=== PATIENT | male | born 1935 | race Caucasian/White ===

== ENCOUNTER → 2017-12-20 08:03 | Outpatient (CLI) | payer MEDICARE, OTHER, SELFPAY ==
[2017-12-20 09:29] LABS: BUN Creatinine Ratio 21.2 (6-22); Blood Urea Nitrogen 36 mg/dL (9-20); Calcium 9.2 mg/dL (8.4-10.2); Carbon Dioxide 25 mmol/L (22-32); Chloride 104 mmol/L (98-107); Estimated Glomerular Filt Rate 38.9 mL/min (>60); Glucose 99 mg/dL (80-110); HEMOLYSIS < 15 (0-50); Potassium 4.6 mmol/L (3.4-5.1); Sodium 141 mmol/L (137-145); Uric Acid 7.8 mg/dL (3.5-8.5)
[2017-12-20 09:30] LABS: C-Reactive Protein Quant < 0.5 mg/dL (<1.0)
[2017-12-20 09:33] LABS: Erythrocyte Sedimentation Rate 16 MM/HR (0-15)
== END ==
PROVIDERS: PCP Internal Medicine; Visit Provider Internal Medicine
DX: M10.9 Gout, unspecified (principal)
CPT/HCPCS: 36415; 80048; 84550; 85651; 86140

== ENCOUNTER 2018-03-30 13:20 | Emergency (ER) | payer MEDICARE, OTHER, SELFPAY ==
[2018-03-30 13:22] VITALS: BP 145/79; PULSE 67; RESP 14; TEMP 36.7; O2SAT 96; BMI 29.0
--- NOTE | 2018-03-30 13:25 | DI.RAD.S_ITS ---
PROCEDURE: XR CHEST 1V INDICATIONS: chest pain TECHNIQUE: One view of the chest was acquired. COMPARISON: [facility], , CHEST 1 VIEW, 07/07/2017, 12:11. FINDINGS: Surgical changes and devices: None. Lungs and pleura: No pleural effusions or pneumothorax. Lungs are clear. Mediastinum: Mediastinal contours appear normal. Heart size is normal. There is likely a large hiatal hernia. Bones and chest wall: No suspicious bony lesions. Overlying soft tissues appear unremarkable. IMPRESSION: No acute cardiopulmonary findings. Dictated by: Rema Flores M.D. on 03/30/2018 at 13:49 Approved by: Rema Flores M.D. on 03/30/2018 at 13:50
[2018-03-30 13:42] LABS: Add Manual Diff / Slide Review NO; Basophils Percent Auto 1.2 % (0-2); Eosinophils Percent Auto 1.4 % (2-4); Hematocrit 40.2 % (41-53); Hemoglobin 13.7 g/dL (13.5-17.5); Lymphocytes Percent Auto 16.2 % (25-40); Mean Corpuscular HGB Conc 34.2 % (30-36); Mean Corpuscular Volume 90.6 fL (80-100); Monocytes Percent Auto 6.3 % (3-14); Neutrophils Absolute Auto 4900 /uL (3000-5900); Neutrophils Percent Auto 74.9 % (50-75); Platelet Count 193 X10^3/uL (150-400); Red Blood Cell Count 4.43 X10^6/uL (4.5-5.9); Red Cell Distribution Width 13.1 % (11.6-14.8); White Blood Cell Count 6.6 X10^3/uL (4.5-11.0)
[2018-03-30 13:52] LABS: Prothrombin Time 11.1 SECONDS (10.1-12.7)
[2018-03-30 13:54] LABS: PTT Partial Thromboplastin Tim 30 SECONDS (26.4-36.2)
[2018-03-30 13:57] LABS: Alanine Aminotransferase 33 IU/L (21-72); Albumin 4.9 g/dL (3.5-5.0); Albumin Globulin Ratio 1.5 (1.0-2.8); Alkaline Phosphatase 110 U/L (38-126); Aspartate Aminotransferase 34 IU/L (17-59); BUN Creatinine Ratio 20.6 (6-22); Bilirubin Total 0.6 mg/dL (0.2-1.3); Blood Urea Nitrogen 33 mg/dL (9-20); Calcium 9.7 mg/dL (8.4-10.2); Carbon Dioxide 25 mmol/L (22-32); Chloride 102 mmol/L (98-107); Creatine Kinase 369 U/L (55-170); Estimated Glomerular Filt Rate 41.7 mL/min (>60); Globulin 3.2 g/dL (1.7-4.1); Glucose 145 mg/dL (80-110); HEMOLYSIS < 15 (0-50); Lipase 43 U/L (23-300); Sodium 142 mmol/L (137-145); Total Protein 8.1 g/dL (6.3-8.2)
[2018-03-30 14:00] VITALS: BP 146/85; PULSE 66; RESP 13; O2SAT 96
[2018-03-30 14:12] LABS: CKMB % Relative Index 1.5 % (1.5-5.0); Creatine Kinase MB 5.36 ng/mL (<2.37)
[2018-03-30 14:14] LABS: Troponin I < 0.012 ng/mL (0.01-0.034)
--- NOTE | 2018-03-30 15:33 | ED.GENADULT ---
HPI - General Adult General Chief complaint: Hypertension Stated complaint: elevated blood pressure, R/O VT Time Seen by Provider: 03/30/18 13:27 Source: patient Mode of arrival: ambulatory Limitations: no limitations History of Present Illness HPI narrative: Patient c/o feeling funny, and finding his BP to be elevated, with a SBP of 170. He denies CP or SOB. He is on his usual dose of lisinopril. He states his normal SBP is 120-130. Patient states he is feeling better now. Patient denies chest pain, shortness breath, nausea, vomiting, just abdominal pain, dysuria, back pain, headache, neurologic deficits, or fever. Related Data Home Medications Medication Instructions Recorded Confirmed multivitamin 1 tab PO DAILY #0 01/26/11 03/30/18 Machado Juice 1 dose PO PRN PRN 03/30/18 03/30/18 ibuprofen 400 mg PO PRN PRN 03/30/18 03/30/18 Previous Rx's Medication Instructions Recorded clopidogrel 75 mg PO QDAY #30 tab 06/18/17 simvastatin 20 mg PO HS #30 tab 06/18/17 alprazolam 0.25 mg tablet 0.25 mg PO TID PRN #90 tabs 10/27/17 lansoprazole 30 mg PO Q DAY #90 cap 02/23/18 lisinopril 5 mg tablet 5 mg PO BID #60 tab 03/31/18 Allergies Allergy/AdvReac Type Severity Reaction Status Date / Time No Known Drug Allergies Allergy Verified 03/30/18 13:25 Review of Systems Review of Systems All systems reviewed & are unremarkable except as noted in HPI and below Constitutional Denies chills, Denies fever(s), Denies lethargy and Denies weakness Eyes Denies change in vision, Denies eye discharge, Denies irritation and Denies loss of vision ENT Ears, Nose, Mouth, and Throat: Denies change in voice, Denies neck pain and Denies sore throat Cardiovascular Denies chest pain, Denies irregular heart rhythm, Denies lightheadedness, Denies palpitations, Denies dyspnea, Denies dyspnea on exertion and Denies orthopnea Respiratory Denies cough, Denies dyspnea, Denies dyspnea on exertion and Denies wheezing Gastrointestinal Gastrointestinal: Denies abdominal pain, Denies change in bowel habits, Denies diarrhea, Denies nausea and Denies vomiting Genitourinary Denies hematuria, Denies flank pain, Denies urinary incontinence and Denies urinary urgency Musculoskeletal Denies neck pain Integumentary/Breasts Denies pruritus, Denies erythema, Denies rash and Denies wounds Neurologic Denies confusion, Denies loss of vision and Denies weakness Psychiatric Denies anxiety, Denies confusion, Denies depression, Denies homicidal ideation and Denies suicidal ideation Endocrine Denies palpitations Hematologic/Lymphatic Denies easy bruising Allergic/Immunologic Denies wheezing [facility] Medical History Diverticular disease (Chronic) Cataract (Chronic ~2007) Glaucoma (Chronic ~2013) Carpal tunnel syndrome (Chronic ~2013) Fibromyalgia (Suspected ~2013) Hearing deficit (Chronic) Anxiety state, unspecified (Chronic 12/31/10) Gastroesophageal reflux disease without esophagitis (Chronic 12/31/10) Essential hypertension (Chronic 02/12/14) Status post insertion of drug-eluting stent into right coronary artery for coronary artery disease (Inactive 04/12/17) Coronary artery disease involving [place] coronary artery of [place] heart without angina pectoris (Chronic 04/12/17) Chicken pox (Resolved ~1941) Foot pain (Resolved ~2009) Gout (Resolved ~2009) Heartburn (Resolved ~2005) Measles (Resolved ~1943) Mumps (Resolved ~1963) Ruptured tympanic membrane (Resolved ~1972) Shoulder pain (Resolved ~2010) Tinnitus (Resolved ~1989) Surgical History History of vasectomy (Inactive) Status post tonsillectomy and adenoidectomy (Inactive ~1946) Family History Brother Age: 86 Family history of lung cancer Brother Cancer Sister Family history of Crohn's disease Father No problems noted. Grandfather No problems noted. Grandmother No problems noted. Mother No problems noted. Grandfather No problems noted. Grandmother No problems noted. 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.) Smoking Status: Former smoker Tobacco: How many years used: 3 Smokeless tobacco user: other (Cigarettes) quit status: quit date established (1958) second hand exposure: No alcohol intake: current (Occasionally) substance use type: does not use Exam Initial Vital Signs Initial Vital Signs: Vital Signs Temperature 98.1 F 03/30/18 13:22 Pulse Rate 67 03/30/18 13:22 Respiratory Rate 14 03/30/18 13:22 Blood Pressure 145/79 H 03/30/18 13:22 Pulse Oximetry 96 03/30/18 13:22 Const General: cooperative and well developed Nutritional Appearance: well nourished Orientation: alert, awake, oriented x3 and not confused HENMT Head: normocephalic and atraumatic Ears: external ears normal Nose: external nose normal and No nasal discharge Face and sinus: face symmetric Mouth: oral mucosae normal and moist mucous membranes Eyes General: appearance normal, both eyes and all related structures Eyelids: eyelids normal Conjunctivae: conjunctivae normal Sclera: sclerae normal Pupils: PERRL EOM: EOM intact bilaterally Neck Neck: normal visual inspection, trachea midline, No lymphadenopathy, No midline deformity and No JVD Lymphatic: No lymphedema Chest Chest: normal inspection of the chest Resp Effort & Inspection: normal respiratory effort, able to speak in complete sentences, no respiratory distress and no use of accessory muscles Auscultation: clear to auscultation bilaterally, no rales, no rhonchi and no wheezes Cardio Rate: regular rate Rhythm: regular rhythm Heart Sounds: no click, no gallops, no murmurs and no rubs Pulses: normal peripheral pulses GI Inspection: non-distended Palpation: soft, no hepatosplenomegaly, No guarding, No pulsatile mass and No tender Back/Spine/Pelvis Back: No CVA tenderness Cervical Spine: cervical ROM normal and No pain with cervical ROM Thoracic/Lumbar Spine: thoracic and lumbar spine normal to inspection Skin General: no rashes or lesions noted, No jaundice and No petechiae Neuro General: alert, oriented x3, gait normal and no focal motor deficits Speech: speech normal Extrem General: full ROM, no clubbing, cyanosis or edema, no pedal edema and no calf tenderness Psych Appearance: well kempt Mental Status: mental status grossly normal Attitude: cooperative Thought Content: normal and suicidality Judgment: judgment good Course Course Narrative: Patient was evaluated in the emergency department with labs EKG which were unremarkable. His blood pressure was just slightly higher than normal in the emergency department. The patient did not display any evidence of end-organ damage, and as such did not meet criteria for hypertensive emergency. I did advise him to continue taking his lisinopril usual, and if his blood pressure runs high persistently, to make an appointment with his primary care physician to discuss whether changes to his antihypertensive regimen are warranted. No urgency condition has been identified today. Orders Ordered: ED Orders 03/30/18 13:25 XR chest 1V Stat EKG-12 Lead Stat 03/30/18 13:34 Complete Blood Count AUTO DIFF Stat Comprehensive Metabolic Panel Stat Lipase Stat Partial Thromboplastin Time Stat Prothrombin Time INR Stat Troponin & CK Cardiac Panel Stat Vital Signs - 8 hr 03/30/18 13:22 03/30/18 14:00 Temperature 98.1 F Pulse Rate 67 66 Respiratory Rate 14 13 Blood Pressure 145/79 H Blood Pressure [Right Arm] 146/85 H Pulse Oximetry 96 96 Medical Decision Making Medical Records Medical records reviewed: Yes I reviewed the patient's medical records. Lab Data Lab results reviewed: Yes I reviewed the patient's lab results. Result diagrams: 03/30/18 13:34 03/30/18 13:34 Lab Results 03/30/18 03/30/18 03/30/18 Range/Units 13:34 13:34 13:34 WBC 6.6 (4.5-11.0) X10^3/uL RBC 4.43 L (4.5-5.9) X10^6/uL Hgb 13.7 (13.5-17.5) g/dL Hct 40.2 L (41-53) % MCV 90.6 (80-100) fL MCH 31.0 (26-34) PG MCHC 34.2 (30-36) % RDW 13.1 (11.6-14.8) % Plt Count 193 (150-400) X10^3/uL Neut % (Auto) 74.9 (50-75) % Lymph % (Auto) 16.2 L (25-40) % [place] % (Auto) 6.3 (3-14) % Eos % (Auto) 1.4 L (2-4) % Baso % (Auto) 1.2 (0-2) % Neut # (Auto) 4900 (3248-8903) /uL PT 11.1 (10.1-12.7) SECONDS INR 1.0 (0.9-1.3) APTT 30 (26.4-36.2) SECONDS Sodium 142 (137-145) mmol/L Potassium 5.0 (3.4-5.1) mmol/L Chloride 102 (98-107) mmol/L Carbon Dioxide 25 (22-32) mmol/L BUN 33 H (9-20) mg/dL Creatinine 1.60 H (0.66-1.25) mg/dL Estimated GFR 41.7 L (>60) mL/min BUN/Creatinine Ratio 20.6 (6-22) Glucose 145 H (80-110) mg/dL Calcium 9.7 (8.4-10.2) mg/dL Total Bilirubin 0.6 (0.2-1.3) mg/dL AST 34 (17-59) IU/L ALT 33 (21-72) IU/L Alkaline Phosphatase 110 (38-126) U/L Total Creatine Kinase 369 H (55-170) U/L CK-MB (CK-2) 5.36 H (<2.37) ng/mL CK-MB (CK-2) Rel Index 1.5 (1.5-5.0) % Troponin I < 0.012 (0.01-0.034) ng/mL Total Protein 8.1 (6.3-8.2) g/dL Albumin 4.9 (3.5-5.0) g/dL Globulin 3.2 (1.7-4.1) g/dL Albumin/Globulin Ratio 1.5 (1.0-2.8) Lipase 43 (23-300) U/L ECG Data Attestation: I personally reviewed and interpreted this ECG as follows: Interpretation: Twelve lead EKG performed on March 30, 2018 at 1:29 p.m.: Regular ventricular rhythm with a rate of 61 beats per minute UT interval 177 milliseconds QRS duration 113 milliseconds QTC interval 441 millisecond Normal axis Q-waves in lead 2 and AVF Occasional ectopy Interpretation: Sinus rhythm with occasional supraventricular premature complexes; probable inferior myocardial infarction, probably old; abnormal EKG is interpreted by ED MD. Discharge Plan Departure Patient Disposition: Home Clinical Impression: Hypertension Discharge Date/Time: 03/30/18 15:41 Interventions: ED Discharge Assessment Last Done: 03/30/18 15:40 Instructions: DI for High Blood Pressure Activity Restrictions/Additional Instructions: Your labs look good. Your EKG also looks good. Your blood pressure may be elevated in a temporary fashion, or it may be a long-term change, which requires your medications to be adjusted. As such, it is important that he follow up with your primary care physician to have your blood pressure recheck. You may also check it once a day around the same time, to get an idea of how high your running on a daily basis. Based on this, you can dock to your doctor about whether your medications need to be changed. Prescriptions: No Action multivitamin Tablet 1 tab PO DAILY Qty: 0 RF: 0 clopidogrel 75 MG tablet 75 mg PO QDAY Qty: 30 RF: 11 simvastatin 20 MG tablet 20 mg PO HS Qty: 30 RF: 10 alprazolam 0.25 mg tablet 0.25 mg PO TID PRN (Reason: anxiety) Qty: 90 RF: 3 lansoprazole 30 mg capsule,delayed release(DR/EC) 30 mg PO Q DAY Qty: 90 RF: 1 lisinopril 5 mg tablet 5 mg PO BID Qty: 60 RF: 0 ibuprofen 200 mg Tablet 400 mg PO PRN PRN (Reason: pain) RF: 0 Machado Juice 1 dose PO PRN PRN (Reason: gout) RF: 0
[2018-03-30 15:40] VITALS: BP 145/101; PULSE 56; RESP 20; O2SAT 99
== END 2018-03-30 15:41 | disposition home or self-care (01) ==
PROVIDERS: Emergency Provider Emergency Medicine; Family Provider Internal Medicine; PCP Internal Medicine
DX: I10 Essential (primary) hypertension (principal)
CPT/HCPCS: 36591; 71045; 80053; 82550; 82553; 83690; 84484; 85025; 85610; 85730; 93005; 99282; 99285

== ENCOUNTER → 2018-04-06 08:15 | Outpatient (CLI) | payer MEDICARE, OTHER, SELFPAY ==
[2018-04-06 09:33] LABS: Cholesterol 152 mg/dL (140-199); HDL Cholesterol 33 mg/dL (40-60); LDL Cholesterol Calculated 87 mg/dL (<100); Triglycerides 162 mg/dL (35-150)
== END ==
PROVIDERS: PCP Internal Medicine; Visit Provider Internal Medicine
DX: I25.10 Atherosclerotic heart disease of native coronary artery without angina pectoris (principal); I10 Essential (primary) hypertension
CPT/HCPCS: 36415; 80061

== ENCOUNTER → 2018-11-28 08:45 | Outpatient (CLI) | payer MEDICARE, OTHER, SELFPAY ==
[2018-11-28 10:08] LABS: Alanine Aminotransferase 22 IU/L (21-72); Albumin 4.3 g/dL (3.5-5.0); Albumin Globulin Ratio 1.5 (1.0-2.8); Alkaline Phosphatase 86 U/L (38-126); Aspartate Aminotransferase 28 IU/L (17-59); BUN Creatinine Ratio 18.7 (6-22); Bilirubin Total 0.6 mg/dL (0.2-1.3); Blood Urea Nitrogen 28 mg/dL (9-20); Calcium 9.3 mg/dL (8.4-10.2); Carbon Dioxide 27 mmol/L (22-32); Chloride 103 mmol/L (98-107); Estimated Glomerular Filt Rate 44.8 mL/min (>60); Globulin 2.8 g/dL (1.7-4.1); Glucose 102 mg/dL (80-110); Potassium 4.7 mmol/L (3.4-5.1); Sodium 139 mmol/L (137-145); Total Protein 7.1 g/dL (6.3-8.2); Triglycerides 196 mg/dL (35-150)
[2018-11-28 10:09] LABS: Cholesterol 153 mg/dL (140-199); HDL Cholesterol 32 mg/dL (40-60); HEMOLYSIS < 15 (0-50); LDL Cholesterol Calculated 82 mg/dL (<100)
== END ==
PROVIDERS: Family Provider Internal Medicine; PCP Internal Medicine; Visit Provider Internal Medicine
DX: I10 Essential (primary) hypertension (principal); I25.10 Atherosclerotic heart disease of native coronary artery without angina pectoris
CPT/HCPCS: 36415; 80053; 80061

== ENCOUNTER 2018-12-16 10:05 | Emergency (ER) | payer MEDICARE, OTHER, SELFPAY ==
[2018-12-16] VITALS (7 sets, daily range): BP systolic 115–136; BP diastolic 65–80; PULSE 53–73; RESP 12–17; TEMP 36.3; O2SAT 95–99
--- NOTE | 2018-12-16 10:12 | DI.RAD.S_ITS ---
PROCEDURE: XR CHEST 1V INDICATIONS: chest pain TECHNIQUE: One view of the chest was acquired. COMPARISON: [facility], CR, XR CHEST 1V, 03/30/2018, 13:37. FINDINGS: Surgical changes and devices: None. Lungs and pleura: Lungs are clear. No pleural effusions or pneumothorax. Mediastinum: Moderate hiatal hernia. Mediastinal contours otherwise appear normal. Heart size is normal. Bones and chest wall: No suspicious bony lesions. Overlying soft tissues appear unremarkable. IMPRESSION: 1. No acute process. 2. Moderate hiatal hernia. Dictated by: Alisha Vanessa M.D. on 12/16/2018 at 9:58 Approved by: Alisha Vanessa M.D. on 12/16/2018 at 9:58
--- NOTE | 2018-12-16 10:15 | ED_ITS ---
HPI - Chest Pain General Chief Complaint: Chest Pain Stated Complaint: chest pain Time Seen by Provider: 12/16/18 10:07 Source: patient Mode of arrival: ambulatory Limitations: no limitations History of Present Illness HPI narrative: Patient is an 83-year-old male who presents with pain. He says that he was working on his trailer hitch when he started having some epigastric central sternal pain. He has no shortness breath no jaw pain no arm pain. He has a history of coronary artery disease with a stent. He says they got it before he had an HI, at that time his symptoms were shortness of breath with exertion. He says this is completely different today. It seems to be more of an ache in the center of his chest which has now completely resolved. Related Data Home Medications Medication Instructions Recorded Confirmed multivitamin 1 tab PO DAILY #0 01/26/11 11/24/18 [place] Juice 1 dose PO PRN PRN 03/30/18 11/24/18 ibuprofen 200 mg tablet 200 mg PO BEDTIME PRN tab 11/24/18 11/24/18 clopidogrel 75 mg PO DAILY 12/16/18 12/16/18 lansoprazole 30 mg PO DAILY 12/16/18 12/16/18 latanoprost 1 drp EYE-BOTH BEDTIME 12/16/18 12/16/18 simvastatin 20 mg PO BEDTIME 12/16/18 12/16/18 Previous Rx's Medication Instructions Recorded lisinopril 5 mg tablet 5 mg PO BID #60 tab 09/09/18 alprazolam 0.25 mg tablet 0.25 mg PO TID PRN #90 tabs 11/09/18 Allergies Allergy/AdvReac Type Severity Reaction Status Date / Time No Known Drug Allergies Allergy Verified 12/16/18 10:14 Review of Systems Review of Systems GENERAL: Denies chills, fatigue, malaise, fever, sweats, travel HEENT: Denies sinus pain, ear pain, sore throat, difficulty swallowing, neck pain RESPIRATORY: Denies dyspnea, cough, wheezing, hemoptysis, sputum. CARDIOVASCULAR: See HPI GASTROINTESTINAL: Denies nausea, vomiting, abdominal pain, diarrhea, constipation, melena. : Denies dysuria, frequency, incontinence, hematuria, urinary retention, flank pain. MUSCULOSKELETAL: Denies weakness, joint pain, or bony pain SKIN: No rash, no erythema, no pruritus NEUROLOGIC: Denies weakness, dizziness, headache, numbness, change in speech, confusion PSYCHIATRIC: No concerning psychosocial issues. 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 HEENT: Head atraumatic,EOMI, pupils reactive, face symmetric CARDIOVASCULAR: Regular rate and rhythm without murmurs, rubs or gallops. Pain is not reproducible by palpation RESPIRATORY: Breath sounds equal bilaterally, no wheezes rales or rhonchi. ABDOMEN: Soft, nontender. Normoactive bowel sounds all 4 quadrants. No guarding or rebound. : No CVA tenderness EXTREMITIES: Normal range of motion, no clubbing or edema. Neurovascularly intact NEUROLOGICAL: Alert and oriented x4.Normal gait and speech. Cranial nerves II through XII grossly intact. SKIN: Warm, dry, no laceration, no petechiae, no rashes or lesions. Course Orders Ordered: Discontinued Medications Aspirin (Aspirin Chew) 324 mg PO NOW ONE Stop: 12/16/18 10:13 Last Admin: 12/16/18 10:21 Dose: 324 mg Consultations Consultation #1: dr. mosquera Time: 14:06 Vital Signs - 8 hr 12/16/18 10:08 12/16/18 10:38 12/16/18 10:52 Temperature 97.4 F L Pulse Rate 73 67 68 Respiratory Rate 17 13 14 Blood Pressure 134/70 Blood Pressure [Left Arm] 115/69 132/70 Pulse Oximetry 97 97 97 12/16/18 11:14 12/16/18 12:13 12/16/18 13:24 Temperature Pulse Rate 67 65 53 L Respiratory Rate 12 14 13 Blood Pressure Blood Pressure [Left Arm] 125/65 125/73 136/67 Pulse Oximetry 97 99 98 MDM - Chest Pain Lab Data Attestation: I reviewed the patient's lab results. Result diagrams: 12/16/18 10:15 12/16/18 10:15 Lab Results 12/16/18 12/16/18 12/16/18 Range/Units 10:15 10:15 10:15 WBC 6.9 (4.5-11.0) X10^3/uL RBC 4.20 L (4.5-5.9) X10^6/uL Hgb 13.0 L (13.5-17.5) g/dL Hct 38.5 L (41-53) % MCV 91.8 (80-100) fL MCH 31.1 (26-34) PG MCHC 33.9 (30-36) % RDW 13.1 (11.6-14.8) % Plt Count 190 (150-400) X10^3/uL Neut % (Auto) 73.5 (50-75) % Lymph % (Auto) 16.1 L (25-40) % Hand % (Auto) 7.1 (3-14) % Eos % (Auto) 1.8 L (2-4) % Baso % (Auto) 1.5 (0-2) % Neut # (Auto) 5100 (6687-2559) /uL Lymph # (Auto) 1100 (6916-2165) /uL Hand # (Auto) 500 (0-900) /uL Eos # (Auto) 100 (0-450) /uL Baso # (Auto) 100 (0-100) /uL PT 11.9 (10.1-12.7) SECONDS INR 1.0 (0.9-1.3) APTT 31 (26.4-36.2) SECONDS Sodium 141 (137-145) mmol/L Potassium 4.7 (3.4-5.1) mmol/L Chloride 107 (98-107) mmol/L Carbon Dioxide 23 (22-32) mmol/L BUN 31 H (9-20) mg/dL Creatinine 1.50 H (0.66-1.25) mg/dL Estimated GFR 44.8 L (>60) mL/min BUN/Creatinine Ratio 20.7 (6-22) Glucose 125 H (80-110) mg/dL Calcium 9.6 (8.4-10.2) mg/dL Total Bilirubin 0.6 (0.2-1.3) mg/dL AST 34 (17-59) IU/L ALT 26 (21-72) IU/L Alkaline Phosphatase 90 (38-126) U/L Total Creatine Kinase 231 H (55-170) U/L CK-MB (CK-2) 5.05 H (<2.37) ng/mL CK-MB (CK-2) Rel Index 2.2 (1.5-5.0) % Troponin I < 0.012 (0.01-0.034) ng/mL B-Natriuretic Peptide < 100 (<100) Total Protein 7.7 (6.3-8.2) g/dL Albumin 4.6 (3.5-5.0) g/dL Globulin 3.1 (1.7-4.1) g/dL Albumin/Globulin Ratio 1.5 (1.0-2.8) Lipase 53 (23-300) U/L / Range/Units 13:13 WBC (4.5-11.0) X10^3/uL RBC (4.5-5.9) X10^6/uL Hgb (13.5-17.5) g/dL Hct (41-53) % MCV (80-100) fL MCH (26-34) PG MCHC (30-36) % RDW (11.6-14.8) % Plt Count (150-400) X10^3/uL Neut % (Auto) (50-75) % Lymph % (Auto) (25-40) % Hand % (Auto) (3-14) % Eos % (Auto) (2-4) % Baso % (Auto) (0-2) % Neut # (Auto) (6982-8310) /uL Lymph # (Auto) (4863-5352) /uL Hand # (Auto) (0-900) /uL Eos # (Auto) (0-450) /uL Baso # (Auto) (0-100) /uL PT (10.1-12.7) SECONDS INR (0.9-1.3) APTT (26.4-36.2) SECONDS Sodium (137-145) mmol/L Potassium (3.4-5.1) mmol/L Chloride (98-107) mmol/L Carbon Dioxide (22-32) mmol/L BUN (9-20) mg/dL Creatinine (0.66-1.25) mg/dL Estimated GFR (>60) mL/min BUN/Creatinine Ratio (6-22) Glucose (80-110) mg/dL Calcium (8.4-10.2) mg/dL Total Bilirubin (0.2-1.3) mg/dL AST (17-59) IU/L ALT (21-72) IU/L Alkaline Phosphatase (38-126) U/L Total Creatine Kinase (55-170) U/L CK-MB (CK-2) (<2.37) ng/mL CK-MB (CK-2) Rel Index (1.5-5.0) % Troponin I < 0.012 (0.01-0.034) ng/mL B-Natriuretic Peptide (<100) Total Protein (6.3-8.2) g/dL Albumin (3.5-5.0) g/dL Globulin (1.7-4.1) g/dL Albumin/Globulin Ratio (1.0-2.8) Lipase (23-300) U/L Imaging Data Chest x-ray: Radiologist's impression: PROCEDURE: XR CHEST 1V INDICATIONS: chest pain TECHNIQUE: One view of the chest was acquired. COMPARISON: [facility], CR, XR CHEST 1V, 03/30/2018, 13:37. FINDINGS: Surgical changes and devices: None. Lungs and pleura: Lungs are clear. No pleural effusions or pneumothorax. Mediastinum: Moderate hiatal hernia. Mediastinal contours otherwise appear normal. Heart size is normal. Bones and chest wall: No suspicious bony lesions. Overlying soft tissues appear unremarkable. IMPRESSION: 1. No acute process. 2. Moderate hiatal hernia. Dictated by: Alisha Vanessa M.D. on 12/16/2018 at 9:58 ECG Data Attestation: I personally reviewed and interpreted this ECG as follows: Prior ECG tracings: available for review Interpretation: EKG 1. Sinus rhythm rate 74 are Q-waves noted inferior leads no ST elevations no T-wave inversions. Q-waves remained unchanged since 2018 EKG 2. Sinus rhythm rate 57 no changes from prior MDM Narrative Medical decision making narrative: I discussed case with Dr. Mosquera, patient's PCP. Patient remains chest pain-free as 2-troponins. At this time [facility] unable to get stress test over the weekend. Dr. Mosquera will arrange for this to happen next week. I have discussed warning signs with patient and when to return to the emergency department he understands that he needs further workup. Discharge Plan Departure Patient Disposition: Home Clinical Impression: Atypical chest pain Discharge Date/Time: 12/16/18 14:23 Interventions: ED Discharge Assessment Last Done: 12/16/18 14:21 Instructions: DI for Atypical Chest Pain Activity Restrictions/Additional Instructions: *You have been diagnosed with atypical chest pain *What to do: You need a stress test, I have called and spoken to Dr. Mosquera who will schedule you for stress test next week. *Continue to take medications as directed *Follow up with your primary care provider in 2-3 days *Return to ER if you should have any worsening chest pain, shortness of breath o r any new, worsening or concerning symptoms Prescriptions: No Action multivitamin Tablet 1 tab PO DAILY Qty: 0 RF: 0 lisinopril 5 mg tablet 5 mg PO BID Qty: 60 RF: 0 alprazolam 0.25 mg tablet 0.25 mg PO TID PRN (Reason: anxiety) Qty: 90 RF: 3 [place] Juice 1 dose PO PRN PRN (Reason: gout) RF: 0 ibuprofen 200 mg tablet 200 mg PO BEDTIME PRN (Reason: pain) RF: 0 latanoprost 0.005 % drops 1 drp EYE-BOTH BEDTIME RF: 0 clopidogrel 75 mg tablet 75 mg PO DAILY RF: 0 simvastatin 20 mg tablet 20 mg PO BEDTIME RF: 0 lansoprazole 30 mg capsule,delayed release(DR/EC) 30 mg PO DAILY RF: 0 Referrals: Silvestre Mosquera MD [Primary Care Provider] -
[2018-12-16] MEDS: ASPIRIN 81 MG TAB 324 MG PO (10:21)
[2018-12-16 10:23] LABS: Add Manual Diff / Slide Review NO; Basophils Absolute Auto 100 /uL (0-100); Basophils Percent Auto 1.5 % (0-2); Eosinophils Absolute Auto 100 /uL (0-450); Eosinophils Percent Auto 1.8 % (2-4); Hematocrit 38.5 % (41-53); Lymphocytes Absolute Auto 1100 /uL (1100-4500); Lymphocytes Percent Auto 16.1 % (25-40); Mean Corpuscular HGB Conc 33.9 % (30-36); Mean Corpuscular Hemoglobin 31.1 PG (26-34); Mean Corpuscular Volume 91.8 fL (80-100); Monocytes Absolute Auto 500 /uL (0-900); Monocytes Percent Auto 7.1 % (3-14); Neutrophils Absolute Auto 5100 /uL (1500-7000); Neutrophils Percent Auto 73.5 % (50-75); Platelet Count 190 X10^3/uL (150-400); Red Cell Distribution Width 13.1 % (11.6-14.8); White Blood Cell Count 6.9 X10^3/uL (4.5-11.0)
[2018-12-16 10:29] LABS: Prothrombin Time 11.9 SECONDS (10.1-12.7)
[2018-12-16 10:32] LABS: PTT Partial Thromboplastin Tim 31 SECONDS (26.4-36.2)
[2018-12-16 10:35] LABS: Alanine Aminotransferase 26 IU/L (21-72); Albumin 4.6 g/dL (3.5-5.0); Albumin Globulin Ratio 1.5 (1.0-2.8); Alkaline Phosphatase 90 U/L (38-126); Aspartate Aminotransferase 34 IU/L (17-59); BUN Creatinine Ratio 20.7 (6-22); Bilirubin Total 0.6 mg/dL (0.2-1.3); Blood Urea Nitrogen 31 mg/dL (9-20); Calcium 9.6 mg/dL (8.4-10.2); Carbon Dioxide 23 mmol/L (22-32); Chloride 107 mmol/L (98-107); Creatine Kinase 231 U/L (55-170); Estimated Glomerular Filt Rate 44.8 mL/min (>60); Globulin 3.1 g/dL (1.7-4.1); Glucose 125 mg/dL (80-110); HEMOLYSIS 20 (0-50); Lipase 53 U/L (23-300); Potassium 4.7 mmol/L (3.4-5.1); Sodium 141 mmol/L (137-145); Total Protein 7.7 g/dL (6.3-8.2)
[2018-12-16 10:39] LABS: B Type Natriuretic Peptide < 100 (<100)
[2018-12-16 10:47] LABS: Troponin I < 0.012 ng/mL (0.01-0.034)
[2018-12-16 10:51] LABS: CKMB % Relative Index 2.2 % (1.5-5.0); Creatine Kinase MB 5.05 ng/mL (<2.37)
[2018-12-16 13:48] LABS: Troponin I < 0.012 ng/mL (0.01-0.034)
== END 2018-12-16 14:23 | disposition home or self-care (01) ==
PROVIDERS: Emergency Provider Emergency Medicine; Family Provider Internal Medicine; PCP Internal Medicine
DX: R07.89 Other chest pain (principal)
CPT/HCPCS: 36415; 36591; 71045; 80053; 82550; 82553; 83690; 83880; 84484; 85025; 85610; 85730; 93005; 99283; 99284

== ENCOUNTER → 2019-01-05 11:12 | Outpatient (CLI) | payer MEDICARE, OTHER, SELFPAY ==
--- NOTE | 2019-01-05 12:35 | PM.TREADMILL ---
Cardiac Stress Test Report Referral & Results Date Patient Seen: 01/05/19 Requesting provider: Silvestre Mosquera Indication: Atypical chest pain in patient with known coronary disease Rest ECG: Unremarkable Procedure Note: Today following both written and verbal informed consent the patient was exercised according to a standard Rafi protocol patient went for a total of 5 minutes 57 seconds achieving a maximum heart rate of 120 maximum systolic blood pressure of 160. This is approximately 7.0 METS. Exercise was terminated at this point because of inability the patient continuing targets were met. Patient was also given Cardiolite through a previously started Hep-Lock IV by the diagnostic imaging staff approximately 1 minute prior to the cessation of exercise. With exercise patient did develop T-wave inversion in leads V4 through V6 without symptoms. These did return to baseline just prior to the discontinuation of monitoring There are no other ST-T segment changes Occasional PAC Functional aerobic impairment rated about 0 on the active scale Impression: Nonspecific T-wave inversions as above. Average exercise capacity Please see perfusion imaging for further details regarding ischemia or lack there of Please note: Actual ECG tracings can be found in the PACS system.
--- NOTE | 2019-01-07 07:55 | DI.NM.S_ITS ---
DATE OF SERVICE: 01/05/2019 PROCEDURE PERFORMED: Exercise treadmill stress and rest myocardial perfusion imaging with gating to assess ejection fraction and regional wall motion. ORDERING PROVIDER: Silvestre Mosquera MD INDICATIONS: The patient is an 83-year-old male recently evaluated in the emergency department with chest tightness and dyspnea. EXERCISE TREADMILL TESTING: The patient was able to exercise for a total of 5 minutes 57 seconds on a standard Rafi protocol, suggesting average exercise capacity with an ROLLY of 0%. He had a normal heart rate and blood pressure response to exercise, achieving a maximum heart rate of 120 bpm (87% of his predicted maximum). He had no chest discomfort. His resting ECG shows sinus rhythm with frequent PACs but normal ST segments. With exercise, there is considerable motion artifact, but the 1-minute recovery ECGs suggest [address] depression in the inferolateral leads. There are no obvious concerning arrhythmias. At 4 minutes and 30 seconds of exercise, at a heart rate of 116 bpm, 27.0 mCi of technetium-99 Myoview was injected and the patient was imaged 20 minutes later using a gated SPECT acquisition protocol. The patient returned the following day and was reinjected with an additional 25.4 mCi of technetium-99 Myoview and was imaged 30 minutes later, again using a gated SPECT acquisition protocol. FINDINGS: 1. Raw Data: There is fair myocardial tracer uptake although there is considerable motion on the post-stress and resting images that require motion correction which can introduce artifact. The lung/heart ratio is normal at 0.33. While the TID ratio is measured at 1.33, which would be mildly elevated, this is not evident visually and is likely artifactual. 2. Quantitative Gated SPECT: Post-stress ejection fraction is estimated at 70% without any focal wall motion abnormality. Resting ejection fraction is estimated at 71% with an end-diastolic volume of 91 mL. 3. Myocardial Perfusion Imaging: Post-stress supine images show a somewhat heterogenous pattern of tracer uptake with a mild defect in the base of the inferior wall, which resolves on prone imaging, which shows a much more uniform, homogenous pattern of tracer activity, suggesting the absence of any perfusion defects. The resting images show a similar perfusion pattern to that of the post-stress supine images. CONCLUSIONS: 1. Normal myocardial perfusion study. 2. No evidence for myocardial ischemia or previous myocardial infarction. 3. Normal left ventricular systolic function without any focal wall motion abnormality. 4. Average exercise capacity without angina although with some mild, nonspecific ECG abnormalities which are likely a false positive. He had frequent PACs but no complex arrhythmia. Chandu Paz - RENNY/[place]/ts doc#: [id number]/job#: [id number] dd: 01/06/2019 15:59:00 dt: 01/07/2019 07:38:00 DICTATING MD/COPIES TO: Raymundo Oliva MD; Silvestre Mosquera MD COPIES MNE: THAO CASTILLO
== END ==
PROVIDERS: PCP Internal Medicine; Visit Provider Internal Medicine
DX: R07.89 Other chest pain (principal); R06.00 Dyspnea, unspecified; I25.10 Atherosclerotic heart disease of native coronary artery without angina pectoris
CPT/HCPCS: 78452; 93016; 93017; 93018; A9502

== ENCOUNTER → 2019-11-29 08:00 | Outpatient (CLI) | payer MEDICARE, OTHER, SELFPAY ==
[2019-11-29 10:13] LABS: Alanine Aminotransferase 27 IU/L (<50); Albumin 4.7 g/dL (3.5-5.0); Albumin Globulin Ratio 1.6 (1.0-2.8); Alkaline Phosphatase 90 U/L (38-126); Aspartate Aminotransferase 33 IU/L (17-59); BUN Creatinine Ratio 19.9 (6-22); Bilirubin Total 0.6 mg/dL (0.2-1.3); Blood Urea Nitrogen 30 mg/dL (9-20); Calcium 9.9 mg/dL (8.4-10.2); Carbon Dioxide 25 mmol/L (22-32); Chloride 104 mmol/L (98-107); Cholesterol 170 mg/dL (140-199); Estimated Glomerular Filt Rate 44.4 mL/min (>60); Globulin 2.9 g/dL (1.7-4.1); Glucose 101 mg/dL (80-110); HDL Cholesterol 33 mg/dL (40-60); HEMOLYSIS < 15 (0-50); LDL Cholesterol Calculated 99 mg/dL (<100); Sodium 140 mmol/L (137-145); Total Protein 7.6 g/dL (6.3-8.2); Triglycerides 191 mg/dL (35-150)
== END ==
PROVIDERS: PCP Internal Medicine; Referring Provider Internal Medicine; Visit Provider Internal Medicine
DX: Z13.220 Encounter for screening for lipoid disorders (principal); I25.10 Atherosclerotic heart disease of native coronary artery without angina pectoris; I10 Essential (primary) hypertension
CPT/HCPCS: 36415; 80053; 80061

== ENCOUNTER → 2020-06-04 11:51 | Outpatient (CLI) | payer MEDICARE, OTHER, SELFPAY ==
[2020-06-04 12:59] LABS: Add Manual Diff / Slide Review NO; Basophils Absolute Auto 100 /uL (0-100); Basophils Percent Auto 0.8 % (0-2); Eosinophils Absolute Auto 100 /uL (0-450); Eosinophils Percent Auto 1.1 % (2-4); Hematocrit 36.8 % (41-53); Hemoglobin 12.4 g/dL (13.5-17.5); Lymphocytes Absolute Auto 1000 /uL (1100-4500); Lymphocytes Percent Auto 12.8 % (25-40); Mean Corpuscular HGB Conc 33.8 % (30-36); Mean Corpuscular Hemoglobin 30.4 PG (26-34); Monocytes Absolute Auto 500 /uL (0-900); Monocytes Percent Auto 6.4 % (3-14); Neutrophils Absolute Auto 6000 /uL (1500-7000); Neutrophils Percent Auto 78.9 % (50-75); Platelet Count 180 X10^3/uL (150-400); Red Blood Cell Count 4.08 X10^6/uL (4.5-5.9); White Blood Cell Count 7.6 X10^3/uL (4.5-11.0)
[2020-06-04 13:11] LABS: Erythrocyte Sedimentation Rate 14 MM/HR (0-15)
[2020-06-04 13:52] LABS: Alanine Aminotransferase 22 IU/L (<50); Albumin 4.4 g/dL (3.5-5.0); Albumin Globulin Ratio 1.6 (1.0-2.8); Alkaline Phosphatase 99 U/L (38-126); Aspartate Aminotransferase 28 IU/L (17-59); BUN Creatinine Ratio 17.8 (6-22); Bilirubin Total 0.6 mg/dL (0.2-1.3); Blood Urea Nitrogen 28 mg/dL (9-20); C-Reactive Protein Quant 0.9 mg/dL (<1.0); Calcium 9.5 mg/dL (8.4-10.2); Carbon Dioxide 24 mmol/L (22-32); Chloride 104 mmol/L (98-107); Estimated Glomerular Filt Rate 42.3 mL/min (>60); Globulin 2.8 g/dL (1.7-4.1); Glucose 101 mg/dL (80-110); HEMOLYSIS < 15 (0-50); Potassium 5.1 mmol/L (3.4-5.1); Sodium 135 mmol/L (137-145); Total Protein 7.2 g/dL (6.3-8.2)
[2020-06-04 13:58] LABS: TSH w/ Reflex to FT4 2.38 uIU/mL (0.47-4.68)
== END ==
PROVIDERS: PCP Internal Medicine; Referring Provider Internal Medicine; Visit Provider Internal Medicine
DX: I10 Essential (primary) hypertension (principal); N18.30 Chronic kidney disease, stage 3 unspecified; Z95.5 Presence of coronary angioplasty implant and graft
CPT/HCPCS: 36415; 80053; 84443; 85025; 85651; 86140

== ENCOUNTER 2020-07-24 13:37 | Emergency (ER) | payer MEDICARE, OTHER, SELFPAY ==
[2020-07-24] VITALS (7 sets, daily range): BP systolic 124–168; BP diastolic 65–84; PULSE 71–79; RESP 16; TEMP 35.9; O2SAT 95–97; BMI 27.8
--- NOTE | 2020-07-24 14:06 | DI.CT.S_ITS ---
PROCEDURE: CT HEAD/BRAIN WO CON INDICATIONS: Fall on thinners TECHNIQUE: Noncontrast 4.5 mm thick angled axial sections acquired from the foramen magnum to the vertex, with coronal and sagittal reformats. For radiation dose reduction, the following was used: automated exposure control, adjustment of mA and/or kV according to patient size. COMPARISON: [facility], MR, STROKE PROTOCOL, 04/02/2016, 13:31. [facility], CT, HEAD WITHOUT CONTRAST, 04/01/2016, 18:58. [facility], CT, HEAD WITHOUT CONTRAST, 07/07/2017, 12:26. FINDINGS: Image quality: Excellent. CSF spaces: Basal cisterns are patent. No extra-axial fluid collections. The ventricles are symmetric in size and shape. Brain: No intracranial bleeds or masses. There is cerebral volume loss for age, with resultant ventricular and sulcal prominence. There are periventricular and deep white matter chronic small vessel ischemic changes. There is intracranial internal carotid artery atherosclerosis. Skull and face: Soft tissue hematoma can be seen posteriorly and superiorly, to the right of midline. No associated calvarial fracture can be seen. Sinuses: Visualized sinuses and mastoids are clear. IMPRESSION: No acute intracranial hemorrhage is seen. No acute intracranial process is seen. Right posterior superior scalp hematoma, without acute underlying fracture present. Dictated by: Shadi Allen M.D. on 07/24/2020 at 13:09 Approved by: Shadi Allen M.D. on 07/24/2020 at 13:12
--- NOTE | 2020-07-24 14:25 | ED_ITS ---
HPI - Head Injury <Valeri Gonzalez PA-C - Last Filed: 07/24/20 17:59> General Chief complaint: Head Injury Stated complaint: fell and hit back of head today Time Seen by Provider: 07/24/20 14:24 Source: patient Mode of arrival: Ambulatory History of Present Illness HPI Narrative: This is a well-appearing 85-year-old on clopidogrel, history of hypertension, stage III renal failure who presents complaining of a fall hitting the back of his head today shortly before arrival to the emergency department. He states he was helping 3 other people move of 450 lb hot tub into the back of a truck he lost his balance in the process and fell backwards hitting the back right top part of his head directly on asphalt. He did not lose consciousness, he denies headache, vision changes, coordination difficulty, speech changes, neck pain, back pain, ongoing bleeding or any other symptoms. MD Complaint: head injury Onset (ago): hour(s) (1.5) Mechanism of Injury: fall Place: home Loss of Consciousness: no Location of injury: parietal (posterior superior parietal) and occipital Severity: mild Severity scale (1-10): 2 Quality: aching Radiation: none Other Injuries: none Context: other anticoagulant use (Plavix) Associated symptoms: denies other symptoms Related Data Home Medications Medication Instructions Recorded Confirmed ibuprofen 200 mg tablet 200 mg PO BEDTIME PRN tab 11/24/18 06/04/20 timolol maleate 0.5 % eye drops 1 drop EYE-BOTH BID ml 04/28/19 06/04/20 multivitamin 1 tab PO DAILY 06/04/20 06/04/20 Previous Rx's Medication Instructions Recorded lisinopril 5 mg tablet 5 mg PO BID #180 tab 09/11/19 lansoprazole 30 mg capsule,delayed 30 mg PO DAILY #90 cap 03/05/20 release alprazolam 0.25 mg tablet 0.25 mg PO BEDTIME #90 tab 05/09/20 clopidogrel 75 mg tablet 75 mg PO DAILY #90 tab 05/27/20 sertraline 25 mg tablet 25 mg PO DAILY #90 tab 06/05/20 simvastatin 20 mg tablet 20 mg PO BEDTIME #90 tab 07/01/20 Allergies Allergy/AdvReac Type Severity Reaction Status Date / Time No Known Drug Allergies Allergy Verified 07/24/20 13:51 Review of Systems <Valeri Gonzalez PA-C - Last Filed: 07/24/20 17:59> Review of Systems Narrative: GENERAL: Denies chills, fatigue, malaise, fever, sweats. HEENT: Positive for goose egg on the top back of his head with a small amount of bleeding right after it happened. Denies sinus pain, ear pain, sore throat, difficulty swallowing, dizziness. RESPIRATORY: Denies dyspnea, cough, wheezing, hemoptysis, sputum. CARDIOVASCULAR: Denies chest pain, palpitations, orthopnea, edema, GASTROINTESTINAL: Denies nausea, vomiting, abdominal pain, diarrhea, constipation, melena. : Denies dysuria, frequency, incontinence, hematuria, urinary retention. MUSCULOSKELETAL: denies weakness, joint pain, or bony pain SKIN: Denies rash, skin lesions, or other NEUROLOGIC: Denies weakness, headache, numbness, change in speech, confusion, seizures, incoordination. PSYCHIATRIC: No concerning psychosocial issues. 12 point review of systems is negative except for those stated above ROS Unobtainable: All systems reviewed & are unremarkable except as noted in HPI and below Patient History <Valeri Gonzalez PA-C - Last Filed: 07/24/20 17:59> Medical History Anxiety state, unspecified (12/31/10) BPH w urinary obs/LUTS Carpal tunnel syndrome (~2013) Cataract (~2007) Chicken pox (~1941) Chronic renal failure, stage 3 (moderate) Coronary artery disease involving [place] coronary artery of [place] heart without angina pectoris (04/12/17) Diverticular disease Essential hypertension (02/12/14) Fibromyalgia (~2013) Foot pain (~2009) Gastroesophageal reflux disease without esophagitis (12/31/10) Glaucoma (~2013) Gout (~2009) Hearing deficit Heartburn (~2005) Measles (~1943) Mumps (~1963) Ruptured tympanic membrane (~1972) Shoulder pain (~2010) Status post insertion of drug-eluting stent into right coronary artery for coronary artery disease (04/12/17) Tinnitus (~1989) Surgical History History of vasectomy Status post tonsillectomy and adenoidectomy (~1947) Family History Brother Age: 88 Family history of lung cancer Brother Cancer Sister Family history of Crohn's disease Father No problems noted. Grandfather No problems noted. Grandmother No problems noted. Mother No problems noted. Grandfather No problems noted. Grandmother No problems noted. Social History marital status: number of children: 2 household members: spouse lives independently: Yes caregiver/support person: No housing: house pets and animals: Yes education level: master's degree occupational status: other Previous occupational history: [employer]: [employer] leisure activities: other Smoking Status: Former smoker Tobacco: How many years used: 3 Smokeless tobacco user: other quit status: quit date established second hand exposure: No alcohol intake: current substance use type: does not use Smoking Status: Former smoker alcohol intake frequency: a few times a month Substance Use Type: does not use Exam <Valeri Gonzalez PA-C - Last Filed: 07/24/20 17:59> Narrative Exam Narrative: GENERAL: 85 year old ambulatory without assistance patient appears younger than stated age. Well-nourished, well-developed patient, in mild distress. HEAD: On the posterior parietal on the right the patient has a ?goose egg? approximately 4 cm x 4 cm by 1 cm depth there is superficial broken skin consistent with an abrasion and mild skin tear there is a slight amount of blood present but no active bleeding. There is tenderness over the immediate area there is no bony crepitus or surrounding tenderness. Otherwise Atraumatic. Normocephalic. EYES: Pupils equal round and reactive. Extraocular motions intact. No scleral icterus. No injection or drainage. ENT: Nose without bleeding, purulent drainage. Throat without erythema, tonsill ar hypertrophy or exudate. Airway patent. NECK: Trachea midline. Non tender, normal active range of motion without pain, no spinous process tenderness. CARDIOVASCULAR: Regular rate and rhythm without murmurs, gallops, or rubs. RESPIRATORY: Clear to auscultation. Breath sounds equal bilaterally. No wheezes, rales, or rhonchi. GASTROINTESTINAL: Abdomen soft, non-tender, nondistended. EXTREMITIES: No edema or joint tenderness. BACK: Nontender without deformity or crepitance. No flank tenderness. NEURO: AOx3. Cranial nerves II-XII are intact. Negative arm drift, normal [id number], extraocular movements intact, coordination intact, gait is intact, strength is intact upper and lower extremities bilaterally 5/5 SKIN: No rash or erythema of visible areas Initial Vital Signs Initial Vital Signs: Vital Signs Blood Pressure 168/84 H 07/24/20 13:47 <Bee Castro DO - Last Filed: 07/25/20 18:54> Initial Vital Signs Initial Vital Signs: Vital Signs Blood Pressure 168/84 H 07/24/20 13:47 Scores <Valeri Gonzalez PA-C - Last Filed: 07/24/20 17:59> GCS [place] coma scale eye opening: Spontaneous [place] coma scale verbal response: Orientated [place] coma scale motor response: Obey commands [place] coma scale total score: 15 Course <Valeri Gonzalez PA-C - Last Filed: 07/24/20 17:59> Orders Ordered: Discontinued Medications Bacitracin (Bacitracin Oint 0.9 Gm Pckt) 1 applic TOP NOW ONE Stop: 07/24/20 14:36 Last Admin: 07/24/20 14:44 Dose: 1 applic Documented by: PARKER Vital Signs Vital signs: Vital Signs - 8 hr 07/24/20 13:47 07/24/20 13:48 07/24/20 13:49 Temperature 96.6 F L Pulse Rate 75 79 Respiratory Rate 16 Blood Pressure 168/84 H 168/81 H Pulse Oximetry 96 96 07/24/20 13:53 07/24/20 14:06 07/24/20 14:07 Temperature Pulse Rate 74 76 71 Respiratory Rate Blood Pressure 144/71 H 136/73 Pulse Oximetry 96 97 97 07/24/20 14:30 Temperature Pulse Rate 72 Respiratory Rate Blood Pressure 124/65 Pulse Oximetry 95 <Bee Castro DO - Last Filed: 07/25/20 18:54> Orders Ordered: Discontinued Medications Bacitracin (Bacitracin Oint 0.9 Gm Pckt) 1 applic TOP NOW ONE Stop: 07/24/20 14:36 Last Admin: 07/24/20 14:44 Dose: 1 applic Documented by: PARKER Vital Signs Vital signs: Vital Signs - 8 hr 07/24/20 13:47 07/24/20 13:48 07/24/20 13:49 Temperature 96.6 F L Pulse Rate 75 79 Respiratory Rate 16 Blood Pressure 168/84 H 168/81 H Pulse Oximetry 96 96 07/24/20 13:53 07/24/20 14:06 07/24/20 14:07 Temperature Pulse Rate 74 76 71 Respiratory Rate Blood Pressure 144/71 H 136/73 Pulse Oximetry 96 97 97 07/24/20 14:30 Temperature Pulse Rate 72 Respiratory Rate Blood Pressure 124/65 Pulse Oximetry 95 MDM - Head Injury <Valeri Gonzalez PA-C - Last Filed: 07/24/20 17:59> Differential Diagnosis Differential diagnosis: Likely concussion without loss of consciousness, closed head injury, subdural hematoma and other (Scalp hematoma) Medical Records Attestation: I reviewed the patient's medical records. Imaging Data CT scan - head: Attestation: I personally reviewed and interpreted this imaging study as follows: Radiologist's Impression: [address] [id number] Scan ReportSigned Patient: Chandu Paz LMR#: [id number]: 1935cct:[id number]/Sex: 85 / MDate of Service: 07/24/20Loc: EDAccession Number: [id number] Procedure: CT head/brain wo con Ordering Provider: Bee Castro D.O. PROCEDURE: CT HEAD/BRAIN WO CON INDICATIONS: Fall on thinners TECHNIQUE: Noncontrast 4.5 mm thick angled axial sections acquired from the foramen magnum to the vertex, with coronal and sagittal reformats. For radiation dose reduction, the following was used: automated exposure control, adjustment of mA and/or kV according to patient size. COMPARISON: [facility], MR, STROKE PROTOCOL, 04/02/2016, 13:31. [facility], CT, HEAD WITHOUT CONTRAST, 04/01/2016, 18:58. [facility], CT, HEAD WITHOUT CONTRAST, 07/07/2017, 12:26. FINDINGS: Image quality: Excellent. CSF spaces: Basal cisterns are patent. No extra-axial fluid collections. The ventricles are symmetric in size and shape. Brain: No intracranial bleeds or masses. There is cerebral volume loss for age, with resultant ventricular and sulcal prominence. There are periventricular and deep white matter chronic small vessel ischemic changes. There is intracranial internal carotid artery atherosclerosis. Skull and face: Soft tissue hematoma can be seen posteriorly and superiorly, to the right of midline. No associated calvarial fracture can be seen. Sinuses: Visualized sinuses and mastoids are clear. IMPRESSION: No acute intracranial hemorrhage is seen. No acute intracranial process is seen. Right posterior superior scalp hematoma, without acute underlying fracture present. Dictated by: Shadi Allen M.D. on 07/24/2020 at 13:09 Approved by: Shadi Allen M.D. on 07/24/2020 at 13:12 [facility] Narrative Medical decision making narrative: This is a well-appearing 85-year-old am bulatory without assistance gentleman with a history of the CKD III, on Plavix who presents complaining of a fall hitting the top of the back of his head from standing today just before arrival. On exam he has a hematoma, skull is stable, he has the CT scan that returns negative for intracranial bleed or bleed. He has no concerning symptoms including no loss of consciousness, no confusion, no neuro deficit with normal neuro exam, no headache no nausea no vomiting. Normal gait. He and his are counseled regarding at things to watch out for over the next 2 days to 2 weeks and return precautions are discussed. He has a abrasions/superficial skin tear over the hematoma this is cleansed and bandaged with bacitracin. Emergency return precautions provided, all questions answered. Discharge Plan Departure Patient Disposition: Home Clinical Impression: Fall from standing Qualifiers: Encounter type: initial encounter Qualified Code(s): W19.XXXA - Unspecified fall, initial encounter Hematoma of right parietal scalp Qualifiers: Encounter type: initial encounter Qualified Code(s): S00.03XA - Contusion of scalp, initial encounter Closed head injury Qualifiers: Encounter type: initial encounter Qualified Code(s): S09.90XA - Unspecified injury of head, initial encounter Instructions: DI for Closed Head Injury Activity Restrictions/Additional Instructions: Thank you for letting us be part of your care in the emergency department today. As we discussed your CT scan returned without evidence of any bleeding in your brain. Because you are on blood thinners you are at increased risk of this when you have a fall in here head. You do have a large ?goose egg? with shallow abrasions and a shallow skin tear on the back of your head which we put antibiotic ointment on and bandaged in the emergency department I recommend you iced this over the next 24 hours on and off and definitely be careful you do not want to open this up as you may have bleeding if this happens. Be sure to use direct pressure if it does open up. This should resolve over the next few days, as we discussed it is important to monitor at home for any new or concerning symptoms including dizziness, lightheadedness,, syncope, headache, vision changes, nausea, vomiting, coordination or balance issues, speech changes, one- sided weakness or any other symptoms of concern particularly over the next few days but even up to the next 2 weeks. If you do develop pain or headache I recommend that you take Tylenol. Otherwise please take your regular medications as prescribed. There is no evidence of an emergent or life threatening illness at this time, but follow up with your doctor in 1-2 days is recommended nonetheless to continue to rule out serious underlying causes of your symptoms. Please call the office for an appointment. Please return to the Emergency Depar tment for any worsening or persistent symptoms. Please take medications as directed. Prescriptions: No Action lisinopril 5 mg tablet 5 mg PO BID Qty: 180 RF: 3 lansoprazole 30 mg capsule,delayed release(DR/EC) 30 mg PO DAILY Qty: 90 RF: 1 Hold Instructions: possible side effects alprazolam 0.25 mg tablet 0.25 mg PO BEDTIME Qty: 90 RF: 0 clopidogrel 75 mg tablet 75 mg PO DAILY Qty: 90 RF: 1 sertraline 25 mg tablet 25 mg PO DAILY Qty: 90 RF: 4 simvastatin 20 mg tablet 20 mg PO BEDTIME Qty: 90 RF: 1 multivitamin Tablet 1 tab PO DAILY RF: 0 timolol maleate 0.5 % drops 1 drop EYE-BOTH BID RF: 0 ibuprofen 200 mg tablet 200 mg PO BEDTIME PRN (Reason: pain) RF: 0 Referrals: Silvestre Mosquera MD [Primary Care Provider] - <Bee Castro DO - Last Filed: 07/25/20 18:54> Cosign ED Attending Cosignature Attestation: I was immediately available in the department for consultation. Documentation has been reviewed.
[2020-07-24] MEDS: BACITRACIN OINT 0.9 GM PCKT 1 APPLIC TOP (14:44)
== END 2020-07-24 15:00 | disposition home or self-care (01) ==
PROVIDERS: Emergency Provider Student in an Organized Health Care Education/Training Program; PCP Internal Medicine
DX: S09.90XA Unspecified injury of head, initial encounter (principal); S00.03XA Contusion of scalp, initial encounter; N18.30 Chronic kidney disease, stage 3 unspecified; W19.XXXA Unspecified fall, initial encounter; I10 Essential (primary) hypertension; Z79.01 Long term (current) use of anticoagulants; I25.10 Atherosclerotic heart disease of native coronary artery without angina pectoris
CPT/HCPCS: 70450; 99284

== ENCOUNTER → 2021-06-19 07:52 | Outpatient (CLI) | payer MEDICARE, OTHER, SELFPAY ==
[2021-06-19 09:07] LABS: Add Manual Diff / Slide Review NO; Basophils Absolute Auto 100 /uL (0-100); Basophils Percent Auto 0.8 % (0-2); Eosinophils Absolute Auto 200 /uL (0-450); Eosinophils Percent Auto 2.1 % (2-4); Lymphocytes Absolute Auto 1300 /uL (1100-4500); Lymphocytes Percent Auto 15.8 % (25-40); Mean Corpuscular HGB Conc 34.4 % (30-36); Mean Corpuscular Hemoglobin 30.8 PG (26-34); Mean Corpuscular Volume 89.5 fL (80-100); Monocytes Absolute Auto 800 /uL (0-900); Monocytes Percent Auto 9.8 % (3-14); Neutrophils Absolute Auto 5800 /uL (1500-7000); Neutrophils Percent Auto 71.5 % (50-75); Platelet Count 187 X10^3/uL (150-400); Red Cell Distribution Width 13.1 % (11.6-14.8); White Blood Cell Count 8.2 X10^3/uL (4.5-11.0)
[2021-06-19 09:54] LABS: Alanine Aminotransferase 27 IU/L (<50); Albumin 4.4 g/dL (3.5-5.0); Albumin Globulin Ratio 1.6 (1.0-2.8); Alkaline Phosphatase 90 U/L (38-126); Aspartate Aminotransferase 28 IU/L (17-59); BUN Creatinine Ratio 20.5 (6-22); Bilirubin Total 0.5 mg/dL (0.2-1.3); Blood Urea Nitrogen 36 mg/dL (9-20); Calcium 9.5 mg/dL (8.4-10.2); Carbon Dioxide 28 mmol/L (22-32); Chloride 102 mmol/L (98-107); Cholesterol 173 mg/dL (140-199); Globulin 2.7 g/dL (1.7-4.1); Glucose 106 mg/dL (80-110); HDL Cholesterol 39 mg/dL (40-60); HEMOLYSIS < 15 (0-50); LDL Cholesterol Calculated 80 mg/dL (<100); Potassium 4.8 mmol/L (3.4-5.1); Sodium 136 mmol/L (137-145); Total Protein 7.1 g/dL (6.3-8.2); Triglycerides 268 mg/dL (35-150)
== END ==
PROVIDERS: PCP Internal Medicine; Referring Provider Internal Medicine; Visit Provider Internal Medicine
DX: I10 Essential (primary) hypertension (principal); N40.1 Benign prostatic hyperplasia with lower urinary tract symptoms; N13.8 Other obstructive and reflux uropathy
CPT/HCPCS: 36415; 80053; 80061; 85025

== ENCOUNTER → 2021-12-16 14:29 | Outpatient (CLI) | payer MEDICARE, OTHER, SELFPAY | PROVIDERS: PCP Internal Medicine; Referring Provider Internal Medicine; Visit Provider Internal Medicine ==

== ENCOUNTER → 2022-07-08 07:54 | Outpatient (CLI) | payer MEDICARE, OTHER, SELFPAY ==
[2022-07-08 08:36] LABS: Add Manual Diff / Slide Review NO; Basophils Absolute Auto 100 /uL (0-100); Basophils Percent Auto 0.9 % (0-2); Eosinophils Absolute Auto 200 /uL (0-450); Eosinophils Percent Auto 2.3 % (2-4); Hematocrit 37.4 % (41-53); Hemoglobin 12.4 g/dL (13.5-17.5); Lymphocytes Absolute Auto 1100 /uL (1100-4500); Lymphocytes Percent Auto 14.2 % (25-40); Mean Corpuscular HGB Conc 33.1 % (30-36); Mean Corpuscular Hemoglobin 30.1 PG (26-34); Mean Corpuscular Volume 90.8 fL (80-100); Monocytes Absolute Auto 600 /uL (0-900); Neutrophils Absolute Auto 6000 /uL (1500-7000); Neutrophils Percent Auto 74.6 % (50-75); Platelet Count 195 X10^3/uL (150-400); Red Blood Cell Count 4.12 X10^6/uL (4.5-5.9); Red Cell Distribution Width 13.3 % (11.6-14.8); White Blood Cell Count 8.1 X10^3/uL (4.5-11.0)
[2022-07-08 09:09] LABS: Alanine Aminotransferase 22 IU/L (<50); Albumin 4.3 g/dL (3.5-5.0); Albumin Globulin Ratio 1.5 (1.0-2.8); Alkaline Phosphatase 119 U/L (38-126); Aspartate Aminotransferase 24 IU/L (17-59); BUN Creatinine Ratio 16.3 (6-22); Bilirubin Total 0.4 mg/dL (0.2-1.3); Blood Urea Nitrogen 29 mg/dL (9-20); Calcium 9.1 mg/dL (8.4-10.2); Carbon Dioxide 25 mmol/L (22-32); Chloride 103 mmol/L (98-107); Cholesterol 163 mg/dL (140-199); Estimated Glomerular Filt Rate 37 mL/min (>60); Globulin 2.9 g/dL (1.7-4.1); Glucose 98 mg/dL (80-110); HDL Cholesterol 36 mg/dL (40-60); HEMOLYSIS < 15 (0-50); LDL Cholesterol Calculated 99 mg/dL (<100); Potassium 4.7 mmol/L (3.4-5.1); Sodium 139 mmol/L (137-145); Total Protein 7.2 g/dL (6.3-8.2); Triglycerides 139 mg/dL (35-150)
== END ==
PROVIDERS: PCP Internal Medicine; Referring Provider Internal Medicine; Visit Provider Internal Medicine
DX: D64.9 Anemia, unspecified (principal); I10 Essential (primary) hypertension; I25.10 Atherosclerotic heart disease of native coronary artery without angina pectoris; N18.30 Chronic kidney disease, stage 3 unspecified
CPT/HCPCS: 36415; 80053; 80061; 85025

== ENCOUNTER 2022-12-17 04:57 | Emergency (ER) | payer MEDICARE, OTHER, SELFPAY ==
[2022-12-17] VITALS (7 sets, daily range): BP systolic 138–167; BP diastolic 67–83; PULSE 65–68; RESP 16–18; TEMP 36.6; O2SAT 95–97; BMI 29.9
--- NOTE | 2022-12-17 05:11 | DI.RAD.S_ITS ---
PROCEDURE: XR LUMBAR SPINE 2-3V INDICATIONS: midline lumbar pain after fall TECHNIQUE: 3 views of the lumbar spine were acquired. COMPARISON: [facility], [place]RELL[place], THORACIC SPINE 3 VIEWS, 01/06/2011, 16:06. [facility], [place]RE[place], L-SPINE 2-3 VIEWS, 01/06/2011, 16:06. FINDINGS: Bones: 5 [id number] vertebrae are present. There is normal bony alignment. Moderate vertebral body compression fractures at T10 and T11. No suspicious bony lesions. Mild levoscoliosis. [id number] degenerative disc disease at L1-L2, L2-L3 and L3-L4, and mild degenerative disease at L4-L5 and L5-S1. Moderate facet arthropathy at L4-L5 and L5-S1. Soft tissues: Overlying bowel gas pattern is normal. No suspicious soft tissue calcifications. IMPRESSION: 1. No acute osseous abnormalities. 2. Moderate chronic compression fracture of T10 and T11. 3. Degenerative disc and facet disease in lumbar spine as described. No significant discrepancy with the client server developer radiology preliminary report. Dictated by: Roland Downey M.D. on 12/17/2022 at 8:38 Approved by: Roland Downey M.D. on 12/17/2022 at 8:41
--- NOTE | 2022-12-17 05:11 | ED.GENADULT ---
HPI - General Adult General Chief complaint: Back Pain/Injury Stated complaint: back injury Time Seen by Provider: 12/17/22 05:05 Source: patient Mode of arrival: Wheelchair Limitations: no limitations History of Present Illness HPI narrative: Patient is an 87-year-old male who approximately 20 days ago sustained a mechanical fall where he slipped on some rocks. He states that he landed directly on his buttocks. He reports no other injuries from the event. Since that time he has been able to ambulate. He reports continued lower back discomfort. Some discomfort with palpation but mostly with movement. No urinary symptoms. No fevers. No radiation to his legs. Related Data Home Medications Medication Instructions Recorded Confirmed timolol maleate 0.5 % eye drops 1 drop EYE-BOTH BID 04/28/19 06/23/22 multivitamin 1 tab PO DAILY 06/04/20 06/23/22 clotrimazole-betamethasone 1 1 applic topical BID 06/23/22 06/23/22 %-0.05 % topical cream Previous Rx's Medication Instructions Recorded clopidogrel 75 mg tablet 75 mg PO DAILY #90 tabs 06/17/21 lansoprazole 30 mg capsule,delayed 30 mg PO DAILY #90 caps 05/18/22 release lisinopril 5 mg tablet 5 mg PO BID #180 tabs 07/07/22 simvastatin 20 mg tablet 20 mg PO BEDTIME #90 tabs 08/10/22 triamcinolone acetonide 0.1 % 1 applic topical QID #80 grams 10/15/22 topical cream tramadol 50 mg tablet 50 mg PO TID PRN pain #14 tabs 12/17/22 Allergies Allergy/AdvReac Type Severity Reaction Status Date / Time No Known Drug Allergies Allergy Verified 06/23/22 08:57 Review of Systems Constitutional Constitutional: Reports system reviewed and no additional complaints, except as documented Musculoskeletal Musculoskeletal: Reports system reviewed and no additional complaints, except as documented Integumentary/Breasts Skin/Breast: Reports system reviewed and no additional complaints, except as documented Neurologic Neurologic: Reports system reviewed and no additional complaints, except as documented Patient History Medical History Anxiety state, unspecified (12/31/10) BPH w urinary obs/LUTS Carpal tunnel syndrome (~2013) Cataract (~2007) Chicken pox (~1941) Chronic renal failure, stage 3 (moderate) Coronary artery disease involving [place] coronary artery of [place] heart without angina pectoris (04/12/17) Diverticular disease Essential hypertension (02/12/14) Fibromyalgia (~2013) Foot pain (~2009) Gastroesophageal reflux disease without esophagitis (12/31/10) Glaucoma (~2013) Gout (~2009) Hearing deficit Heartburn (~2005) Measles (~1943) Mumps (~1963) Ruptured tympanic membrane (~1972) Shoulder pain (~2010) Status post insertion of drug-eluting stent into right coronary artery for coronary artery disease (04/12/17) Tinnitus (~1989) Surgical History History of vasectomy Status post tonsillectomy and adenoidectomy (~1946) Family History Brother Age: 91 Family history of lung cancer Brother Cancer Sister Family history of Crohn's disease Father No problems noted. Grandfather No problems noted. Grandmother No problems noted. Mother No problems noted. Grandfather No problems noted. Grandmother No problems noted. Social History marital status: number of children: 2 household members: spouse lives independently: Yes caregiver/support person: No housing: house pets and animals: Yes education level: master's degree occupational status: other Previous occupational history: [employer]: [employer] leisure activities: other Smoking Status: Former smoker Tobacco: How many years used: 3 Smokeless tobacco user: other quit status: quit date established second hand exposure: No alcohol intake: current substance use type: does not use Smoking Status: Former smoker alcohol intake frequency: a few times a month Substance Use Type: does not use Exam Initial Vital Signs Initial Vital Signs: Vital Signs Pulse Rate 65 12/17/22 05:04 Pulse Oximetry 96 12/17/22 05:04 Oxygen Delivery Method Room Air 12/17/22 05:04 HENMT Head: normal to inspection and normocephalic Back/Spine/Pelvis Thoracic/Lumbar Spine: No paraspinal tenderness, No thoracic spinal tenderness and lumbar spinal tenderness Skin General: no rashes or lesions noted Neuro General: patient alert, patient awake, patient oriented x3 and moves all extremities Extrem General: capillary refill normal Course Orders Ordered: ED Orders 12/17/22 05:11 XR lumbar spine 2-3V Stat Discontinued Medications Tramadol HCl (Tramadol 50 Mg Tablet) 50 mg PO NOW ONE Stop: 12/17/22 06:13 Tramadol HCl (Tramadol 50 Mg Prepack) 1 bottle MISC SEEINSTR ONE Stop: 12/17/22 06:13 Vital Signs Vital signs: Vital Signs - 8 hr 12/17/22 05:08 12/17/22 05:04 12/17/22 05:05 Temperature 97.8 F Pulse Rate 65 65 66 Respiratory Rate 18 Blood Pressure 167/83 H Pulse Oximetry 95 96 95 Oxygen Delivery Method Room Air Room Air Room Air 12/17/22 05:30 12/17/22 06:00 Temperature Pulse Rate 68 67 Respiratory Rate Blood Pressure Pulse Oximetry 96 95 Oxygen Delivery Method Medical Decision Making Imaging Data Lumbar spine x-ray: Radiologist's Impression: 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 X-ray shows no acute pathology. No fractures noted. Patient has been ambulatory. I did discuss this with him. For now we will attempt symptom control. No indication for advanced imaging currently. We discussed use of Tylenol and ibuprofen will sent home with tramadol to use for breakthrough pain. He was given return precautions. He expressed understanding and agreement. Discharge Plan Departure Patient Disposition: Home Clinical Impression: Lower back pain Instructions: DI for Low Back Pain Activity Restrictions/Additional Instructions: Recommend that you continue to take all of your medications as directed. The x-ray today did not show any signs of a fracture in your lumbar spine. You can ambulate as tolerated. Recommend that you use Tylenol and ibuprofen at baseline for the discomfort and then use the pain medication you are given today as needed for breakthrough pain. Contact your primary doctor for a follow-up. Prescriptions: New tramadol 50 mg tablet 50 mg PO TID PRN (Reason: pain) Qty: 14 0RF No Action lansoprazole 30 mg capsule,delayed release(DR/EC) 30 mg PO DAILY Qty: 90 3RF Hold Instructions: possible side effects lisinopril 5 mg tablet 5 mg PO BID Qty: 180 3RF simvastatin 20 mg tablet 20 mg PO BEDTIME Qty: 90 3RF triamcinolone acetonide 0.1 % cream 1 applic topical QID Qty: 80 0RF multivitamin Tablet 1 tab PO DAILY clopidogrel 75 mg tablet 75 mg PO DAILY Qty: 90 3RF clotrimazole-betamethasone 1-0.05 % cream 1 applic topical BID Patient Comments: APPLY TOPICALLY TWICE A DAY FOR 4 WEEKS Rx Instructions: For 4 weeks. timolol maleate 0.5 % drops 1 drop EYE-BOTH BID Referrals: Silvestre Mosquera MD [Primary Care Provider] - Stand Alone Forms: Patient Portal/API
[2022-12-17] MEDS: TRAMADOL 50 MG PREPACK 1 BOTTLE MISC (06:42)
== END 2022-12-17 06:45 | disposition home or self-care (01) ==
PROVIDERS: Emergency Provider Emergency Medicine; PCP Internal Medicine
DX: M54.50 Low back pain, unspecified (principal)
CPT/HCPCS: 72100; 99283

== ENCOUNTER 2023-06-18 00:30 | Emergency (ER) | payer MEDICARE, OTHER, SELFPAY ==
[2023-06-18] VITALS (7 sets, daily range): BP systolic 174–183; BP diastolic 79–85; PULSE 60–68; RESP 18; TEMP 36.4; O2SAT 98–100; BMI 27.7
--- NOTE | 2023-06-18 00:53 | DI.CT.S_ITS ---
PROCEDURE: CT HEAD/BRAIN WO CON INDICATIONS: head injury TECHNIQUE: Noncontrast 4.5 mm thick angled axial sections acquired from the foramen magnum to the vertex, with coronal and sagittal reformats. For radiation dose reduction, the following was used: automated exposure control, adjustment of mA and/or kV according to patient size. COMPARISON: [facility], CT, CT HEAD/BRAIN WO CON, 07/24/2020, 13:56. FINDINGS: Image quality: Diagnostic. CSF spaces: Basal cisterns are patent. No extra-axial fluid collections. The ventricles are symmetric in size and shape. Brain: No intracranial bleeds or masses. There is cerebral volume loss for age, with resultant ventricular and sulcal prominence. There are periventricular and deep white matter chronic small vessel ischemic changes. There is intracranial internal carotid artery atherosclerosis. Skull and face: Calvarium and visualized facial bones appear intact, without suspicious lesions. Sinuses: Visualized sinuses and mastoids are clear. IMPRESSION: 1. No acute intracranial process. 2. Moderate to severe atrophy and chronic microvascular ischemic changes. Dictated by: Brandi Frias M.D. on 06/18/2023 at 1:43 Approved by: Brandi Frias M.D. on 06/18/2023 at 1:43
[2023-06-18] MEDS: TET,DIPH,PERTUSS(ACELL),VAC/PF 0.5 ML SYRINGE IM (00:59)
[2023-06-18] MEDS: BACITRACIN OINT 0.9 GM PCKT 1 APPLIC TOP (02:16)
--- NOTE | 2023-06-18 03:17 | ED_ITS ---
HPI - Wound/Laceration General Chief Complaint: Wound/Laceration Stated Complaint: fell cut over lt eye Time Seen by Provider: 06/18/23 00:51 Source: patient and family Mode of arrival: Wheelchair History of Present Illness HPI narrative: 88-year-old male with a ground level fall today striking his left eyebrow on a piece of furniture causing a laceration. No loss of consciousness. He is not taking anticoagulation. He has no other pain he has no neck pain. He is not amnestic for the event, he is not had nausea or vomiting. Patient can not recall when his last tetanus booster was. He is accompanied by his . Related Data Home Medications Medication Instructions Recorded Confirmed timolol maleate 0.5 % eye drops 1 drop EYE-BOTH BID 04/28/19 05/03/23 multivitamin 1 tab PO DAILY 06/04/20 05/03/23 clotrimazole-betamethasone 1 1 applic topical BID 06/23/22 05/03/23 %-0.05 % topical cream donepezil 10 mg tablet 10 mg PO DAILY 05/03/23 05/03/23 Previous Rx's Medication Instructions Recorded lisinopril 5 mg tablet 5 mg PO BID #180 tabs 07/07/22 simvastatin 20 mg tablet 20 mg PO BEDTIME #90 tabs 08/10/22 triamcinolone acetonide 0.1 % 1 applic topical QID #80 grams 10/15/22 topical cream lansoprazole 30 mg capsule,delayed 30 mg PO DAILY #90 caps 03/02/23 release Allergies Allergy/AdvReac Type Severity Reaction Status Date / Time No Known Drug Allergies Allergy Verified 05/03/23 10:05 Patient History Medical History Anxiety state, unspecified (12/31/10) BPH w urinary obs/LUTS Carpal tunnel syndrome (~2013) Cataract (~2007) Chicken pox (~1941) Chronic renal failure, stage 3 (moderate) Coronary artery disease involving [place] coronary artery of [place] heart without angina pectoris (04/12/17) Diverticular disease Essential hypertension (02/12/14) Fibromyalgia (~2013) Foot pain (~2009) Gastroesophageal reflux disease without esophagitis (12/31/10) Glaucoma (~2013) Gout (~2009) Hearing deficit Heartburn (~2005) Measles (~194) Mild cognitive impairment Mumps (~1963) Ruptured tympanic membrane (~1972) Shoulder pain (~2010) Status post insertion of drug-eluting stent into right coronary artery for coronary artery disease (04/12/17) Tinnitus (~1989) Surgical History History of vasectomy Status post tonsillectomy and adenoidectomy (~1946) Family History Brother Age: 91 Family history of lung cancer Brother Cancer Sister Family history of Crohn's disease Father No problems noted. Grandfather No problems noted. Grandmother No problems noted. Mother No problems noted. Grandfather No problems noted. Grandmother No problems noted. Social History marital status: number of children: 2 household members: spouse lives independently: Yes caregiver/support person: No housing: house pets and animals: Yes education level: master's degree occupational status: other Previous occupational history: [employer]: [employer] leisure activities: other Smoking Status: Former smoker Tobacco: How many years used: 3 Smokeless tobacco user: other quit status: quit date established second hand exposure: No alcohol intake: current substance use type: does not use Smoking Status: Former smoker alcohol intake frequency: a few times a month Substance Use Type: does not use Exam Initial Vital Signs Initial Vital Signs: Vital Signs Pulse Rate 65 06/18/23 00:37 Pulse Oximetry 99 06/18/23 00:37 Const General: No acute distress HENMT HENMT Other: 3 cm laceration to left eyebrow. Head is otherwise atraumatic. Pupils are equal and reactive extraocular movements are intact speech is clear he is fully oriented. Neck Neck: No tender Resp Effort & Inspection: normal respiratory effort Cardio Rate: regular rate Skin General: dry skin and warm Neuro General: patient alert, patient awake and patient oriented x3 Extrem General: normal to inspection Procedures Laceration Repair Laceration 1: Site: face (Left eyebrow) Size (cm): 3 Description: linear Local Anesthetic: lidocaine 1% and with epi Skin layer closed with: nylon Skin layer suture size: 5-0 Technique: simple, interrupted Course Orders Ordered: ED Orders 06/18/23 00:53 CT head/brain wo con Stat Discontinued Medications Bacitracin (Bacitracin Oint 0.9 Gm Pckt) 1 applic TOP NOW ONE Stop: 06/18/23 02:09 Last Admin: 06/18/23 02:16 Dose: 1 applic Documented By: EDDA Diphtheria/Tetanus/Acell Pertussis (Tet,Diph,Pertuss(Acell),Vac/Pf 0.5 Ml Syringe) 0.5 ml IM .ONCE ONE Stop: 06/18/23 00:57 Last Admin: 06/18/23 00:59 Dose: 0.5 ml Documented By: EDDA Vital Signs Vital signs: Vital Signs - 8 hr 06/18/23 00:37 06/18/23 00:38 06/18/23 00:38 Temperature Pulse Rate 65 65 Respiratory Rate Blood Pressure 183/85 H Pulse Oximetry 99 99 Oxygen Delivery Method 06/18/23 00:41 06/18/23 01:00 06/18/23 01:01 Temperature 97.6 F Pulse Rate 64 68 Respiratory Rate 18 Blood Pressure 183/85 H 174/79 H Pulse Oximetry 99 98 Oxygen Delivery Method Room Air 06/18/23 01:01 06/18/23 01:30 06/18/23 02:00 Temperature Pulse Rate 68 67 60 Respiratory Rate Blood Pressure Pulse Oximetry 98 100 98 Oxygen Delivery Method MDM - Wound/Laceration Imaging Data CT scan - head: My Impression: Independent review of CT head, no acute injury Radiologist's Impression: Radiology report was reviewed, radiologist's dictation is available separately, no acute injury MDM Narrative Medical decision making narrative: 88-year-old man with mechanical fall leading to a left eyebrow laceration. Mental status is intact, no cervical spine tenderness or neurologic change, CT head is negative for acute injury, laceration was closed Discharge Plan Departure Patient Disposition: Home Clinical Impression: Laceration Fall Qualifiers: Encounter type: initial encounter Qualified Code(s): W19.XXXA - Unspecified fall, initial encounter Head injury Qualifiers: Encounter type: initial encounter Qualified Code(s): S09.90XA - Unspecified injury of head, initial encounter Instructions: DI for Laceration Repair Activity Restrictions/Additional Instructions: Today, we saw you for a fall resulting in a minor head injury with a facial laceration. The laceration had stitches placed, these will need to be removed in 5 days, you can return to the emergency department or see your primary care provider for this. In the meantime, apply antibiotic ointment to this once or t wice a day. If you are having redness swelling or increased pain at the wound recheck in the emergency department. Because you had a laceration, we updated your tetanus. This is good for [address] scan of the head today does not show any acute injury. However there is the possibility of delayed bleeding around the brain after a fall. Therefore if you have an increasing headache vomiting or unsteadiness recheck in the emergency department. Prescriptions: No Action lisinopril 5 mg tablet 5 mg PO BID Qty: 180 3RF simvastatin 20 mg tablet 20 mg PO BEDTIME Qty: 90 3RF triamcinolone acetonide 0.1 % cream 1 applic topical QID Qty: 80 0RF lansoprazole 30 mg capsule,delayed release(DR/EC) 30 mg PO DAILY Qty: 90 3RF Hold Instructions: possible side effects multivitamin Tablet 1 tab PO DAILY clotrimazole-betamethasone 1-0.05 % cream 1 applic topical BID Patient Comments: APPLY TOPICALLY TWICE A DAY FOR 4 WEEKS Rx Instructions: For 4 weeks. donepezil 10 mg tablet 10 mg PO DAILY timolol maleate 0.5 % drops 1 drop EYE-BOTH BID Referrals: Silvestre Mosquera MD [Primary Care Provider] - Stand Alone Forms: Patient Portal/API
== END 2023-06-18 02:24 | disposition home or self-care (01) ==
PROVIDERS: Emergency Provider Emergency Medicine; PCP Internal Medicine
DX: S01.112A Laceration without foreign body of left eyelid and periocular area, initial encounter (principal); S09.90XA Unspecified injury of head, initial encounter; W18.00XA Striking against unspecified object with subsequent fall, initial encounter; Z23 Encounter for immunization
CPT/HCPCS: 12013; 70450; 90471; 99284; 90715

== ENCOUNTER → 2023-08-06 14:24 | Outpatient (CLI) | payer MEDICARE, OTHER, SELFPAY ==
[2023-08-06 14:51] LABS: Add Manual Diff / Slide Review NO; Basophils Absolute Auto 100 /uL (0-100); Basophils Percent Auto 0.8 % (0-2); Eosinophils Absolute Auto 200 /uL (0-450); Eosinophils Percent Auto 2.5 % (2-4); Hemoglobin 11.5 g/dL (13.5-17.5); Lymphocytes Absolute Auto 1600 /uL (1100-4500); Lymphocytes Percent Auto 19.1 % (25-40); Mean Corpuscular HGB Conc 33.9 % (30-36); Mean Corpuscular Hemoglobin 31.1 PG (26-34); Mean Corpuscular Volume 91.6 fL (80-100); Monocytes Absolute Auto 600 /uL (0-900); Monocytes Percent Auto 7.4 % (3-14); Neutrophils Absolute Auto 6000 /uL (1500-7000); Neutrophils Percent Auto 70.2 % (50-75); Platelet Count 277 X10^3/uL (150-400); Red Blood Cell Count 3.72 X10^6/uL (4.5-5.9); Red Cell Distribution Width 13.3 % (11.6-14.8); White Blood Cell Count 8.5 X10^3/uL (4.5-11.0)
[2023-08-06 15:22] LABS: Alanine Aminotransferase 24 IU/L (<50); Albumin 4.2 g/dL (3.5-5.0); Albumin Globulin Ratio 1.3 (1.0-2.8); Alkaline Phosphatase 104 U/L (38-126); Aspartate Aminotransferase 26 IU/L (17-59); BUN Creatinine Ratio 22.2 (6-22); Bilirubin Total 0.4 mg/dL (0.2-1.3); Blood Urea Nitrogen 47 mg/dL (9-20); Calcium 9.4 mg/dL (8.4-10.2); Carbon Dioxide 24 mmol/L (22-32); Chloride 103 mmol/L (98-107); Estimated Glomerular Filt Rate 30 mL/min (>60); Globulin 3.3 g/dL (1.7-4.1); Glucose 121 mg/dL (80-110); HEMOLYSIS < 15 (0-50); Potassium 4.8 mmol/L (3.4-5.1); Sodium 136 mmol/L (137-145); Total Protein 7.5 g/dL (6.3-8.2)
[2023-08-06 15:46] LABS: Vitamin D 25 Hydroxy (D3) 34.8 ng/mL (30.0-100.0)
[2023-08-06 16:09] LABS: Vitamin B12 614 pg/mL (239-931)
== END ==
PROVIDERS: PCP Internal Medicine; Referring Provider Internal Medicine; Visit Provider Internal Medicine
DX: I10 Essential (primary) hypertension (principal); E55.9 Vitamin D deficiency, unspecified; G31.84 Mild cognitive impairment of uncertain or unknown etiology; R41.3 Other amnesia; N18.30 Chronic kidney disease, stage 3 unspecified
CPT/HCPCS: 36415; 80053; 82306; 82607; 85025

== ENCOUNTER → 2023-08-19 14:27 | Outpatient (CLI) | payer MEDICARE, OTHER, SELFPAY ==
--- NOTE | 2023-08-19 14:30 | DI.RAD.S_ITS ---
PROCEDURE: XR TOE LT MIN 2V INDICATIONS: great toe pain/swelling/brihgt red, other toes also mildly TECHNIQUE: 3 views of the 1st toe(s) acquired. COMPARISON: None. FINDINGS: Bones: No fractures or dislocations. No suspicious bony lesions. Mild hallux valgus. Eccentric erosion of the 1st MTP joint. Bone bunion formation of the 1st metatarsal head. First PIP joint space narrowing with osteophytosis. Soft tissues: No suspicious soft tissue densities. 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 Degenerative changes of the 1st PIP. Dictated by: Vitor Allen M.D. on 08/19/2023 at 16:43 Approved by: Vitor Allen M.D. on 08/19/2023 at 16:45
[2023-08-19 16:01] LABS: Add Manual Diff / Slide Review NO; Basophils Absolute Auto 100 /uL (0-100); Basophils Percent Auto 0.8 % (0-2); Eosinophils Absolute Auto 300 /uL (0-450); Eosinophils Percent Auto 2.9 % (2-4); Hematocrit 33.6 % (41-53); Hemoglobin 11.6 g/dL (13.5-17.5); Lymphocytes Absolute Auto 1300 /uL (1100-4500); Lymphocytes Percent Auto 14.1 % (25-40); Mean Corpuscular HGB Conc 34.5 % (30-36); Mean Corpuscular Hemoglobin 31.8 PG (26-34); Mean Corpuscular Volume 92.1 fL (80-100); Monocytes Absolute Auto 700 /uL (0-900); Monocytes Percent Auto 7.6 % (3-14); Neutrophils Absolute Auto 6700 /uL (1500-7000); Neutrophils Percent Auto 74.6 % (50-75); Platelet Count 239 X10^3/uL (150-400); Red Blood Cell Count 3.64 X10^6/uL (4.5-5.9); Red Cell Distribution Width 13.4 % (11.6-14.8)
[2023-08-19 16:52] LABS: Uric Acid 8.4 mg/dL (3.5-8.5)
[2023-08-19 16:57] LABS: Erythrocyte Sedimentation Rate 36 MM/HR (0-15)
== END ==
PROVIDERS: PCP Internal Medicine; Referring Provider Physician Assistant; Visit Provider Physician Assistant
DX: M10.9 Gout, unspecified (principal); M20.12 Hallux valgus (acquired), left foot; M21.612 Bunion of left foot
CPT/HCPCS: 36415; 73660; 84550; 85025; 85651

== ENCOUNTER → 2023-12-03 09:49 | Outpatient (CLI) | payer MEDICARE, OTHER, SELFPAY ==
[2023-12-03 10:56] LABS: BUN Creatinine Ratio 18.1 (6-22); Blood Urea Nitrogen 39 mg/dL (9-20); Carbon Dioxide 24 mmol/L (22-32); Chloride 107 mmol/L (98-107); Estimated Glomerular Filt Rate 29 mL/min (>60); Glucose 97 mg/dL (80-110); HEMOLYSIS < 15 (0-50); Sodium 139 mmol/L (137-145); Uric Acid 9.5 mg/dL (3.5-8.5)
== END ==
PROVIDERS: PCP Internal Medicine; Referring Provider Internal Medicine; Visit Provider Internal Medicine
DX: M10.9 Gout, unspecified (principal); N18.30 Chronic kidney disease, stage 3 unspecified
CPT/HCPCS: 36415; 80048; 84550